=== PATIENT | female | born 1965 | race Caucasian/White ===

== ENCOUNTER 2018-05-11 11:02 | Outpatient (CLI) | payer OTHER ==
--- NOTE | 2018-05-11 11:43 | MMO ---
BILATERAL SCREENING MAMMOGRAM: Date: 05/11/18 VIEWS: Bilateral CC and MLO. COMPARISON: 02/18/17 and 02/23/15. FINDINGS: This patient's mammogram was interpreted with the assistance of computer-aided detection. The breast parenchyma is comprised of scattered areas of fibroglandular density. No suspicious masses , areas of architectural distortion, or suspicious calcifications apparent. IMPRESSION: BIRADS 1: Negative Annual screening mammography recommended. POS: [facility]
== END 2018-05-11 11:03 | disposition home or self-care (01) ==
LOC: SCSMAMMO 11:02
PROVIDERS: ATTEND Family Medicine
DX: Z12.31 Encounter for screening mammogram for malignant neoplasm of breast (principal)
CPT/HCPCS: 77067